=== PATIENT | male | born 1995 | race Caucasian/White ===

== ENCOUNTER 2021-05-02 19:23 | Emergency (ER) | payer BC ==
[~2021-05-02] VITALS: Ht 195.6 cm; Wt 77.3 kg
[2021-05-02 22:27] LABS: HEMATOCRIT 50.5 % (42.0-52.0); HEMOGLOBIN 17.4 g/dl (13.5-18.0); MEAN CELL VOLUME 93 fl (80.0-100.0); MEAN CORPUSCULAR HEMOGLOBIN 32 pg (27-31); MEAN CORPUSCULAR HGB CONC 35 g/dl (33.0-37.0); MEAN PLATELET VOLUME 9.8 fl (7.4-10.4); PLATELET COUNT 198 K/mm3 (130-400); RED BLOOD COUNT 5.46 M/mm3 (4.20-5.60); REDCELL DISTRIBUTION WIDTH-CV 11.9 % (11.5-14.5)
[2021-05-02 22:58] LABS: BILIRUBIN,TOTAL 1.8 mg/dL (0.2-1.2); CREATININE, serum 1.66 mg/dL (0.72-1.25); POTASSIUM 4.6 mmol/L (3.5-4.5); TOTAL PROTEIN 7.9 gm/dL (6.2-8.1)
[2021-05-02 23:23] LABS: BAND 1 % (0-10); BASOPHIL 1 % (0-2); LYMPHOCYTE 3 % (20.0-51.0); NEUTROPHILS 90 % (42.0-75.2); PLATELET ESTIMATE NORMAL (NORMAL)
[2021-05-03] MEDS ORDERED: ZOFRAN ODT4 MG PO (00:17)
[2021-05-03 00:41] VITALS: BP 119/67; PULSE 84; TEMP 98.3
== END 2021-05-03 00:41 | disposition home or self-care (01) ==
LOC: COL.ER 19:23
PROVIDERS: Personal Emergency Response Attendant
DX: R11.2 Nausea with vomiting, unspecified (principal); E86.0 Dehydration; R19.7 Diarrhea, unspecified; D72.829 Elevated white blood cell count, unspecified; R79.89 Other specified abnormal findings of blood chemistry
CPT/HCPCS: J2270; J2405; J7030